=== PATIENT | female | born 1990 | race African-American/Black ===

== ENCOUNTER 2018-10-20 15:38 | Emergency (ER) | payer OTHER ==
[~2018-10-20] VITALS: Ht 149.9 cm; Wt 58.2 kg
[2018-10-20] MEDS ORDERED: PRENTAB55 PO (15:53)
[2018-10-20 16:19] LABS: BASO % 0.4 % (0.0-1.0); EOS # 0.5 10^3/uL (0.0-0.50); EOS % 5.6 % (0.0-3.0); HEMATOCRIT 39.9 % (36.0-47.0); HEMOGLOBIN 13.3 g/dl (12.0-15.5); LYMPH # 2.9 10^3/uL (1.5-6.5); LYMPH % 35.2 % (24.0-44.0); MEAN CORPUSCULAR HEMOGLOBIN 27.8 pg (27.0-33.0); MEAN CORPUSCULAR HGB CONC 33.3 g/dl (32.0-36.5); MEAN CORPUSCULAR VOLUME 83.5 fl (80.0-96.0); MONO # 0.6 10^3/uL (0.0-0.8); MONO % 7.1 % (0.0-5.0); NEUTROPHILS # 4.2 10^3/uL (1.8-7.7); NEUTROPHILS % 51.3 % (36.0-66.0); PLATELET COUNT, AUTOMATED 170 10^3/uL (150-450); RED BLOOD COUNT 4.78 10^6/uL (4.00-5.40); WHITE BLOOD COUNT 8.2 10^3/uL (4.0-10.0)
--- NOTE | 2018-10-20 17:07 | REP ---
First trimester obstetric ultrasound, stat request for abdominal pain: The study is performed with transabdominal and Doppler ultrasound assessment: There is an intrauterine gestational sac with a pole. The heart rate is 178 beats per minute. The pole crown-rump length is 2.1 cm corresponding to 8 weeks 5 days gestational age/JP 05/27/2019. There is no subchorionic hematoma. There are no adnexal masses or cysts. There is no free fluid in the pelvis. There is vascular flow in both ovaries. The Doppler resistive index of the parenchymal arteries in the right ovary is 0.65 and left ovary 0.59. Electronically Signed by Ezio Mujica MD 10/20/2018 04:59 P
[2018-10-20 17:10] LABS: ALBUMIN 3.3 GM/DL (3.2-5.2); ALT/SGPT 33 U/L (12-78); BILIRUBIN,DIRECT < 0.1 MG/DL (0.0-0.2); BILIRUBIN,TOTAL 0.1 MG/DL (0.2-1.0); BLOOD UREA NITROGEN 7 MG/DL (7-18); CALCIUM LEVEL 9.5 MG/DL (8.5-10.1); CARBON DIOXIDE LEVEL 26 MEQ/L (21-32); CHLORIDE LEVEL 105 MEQ/L (98-107); CREATININE FOR GFR 0.65 MG/DL (0.55-1.30); GLOMERULAR FILTRATION RATE > 60.0 (>60); GLUCOSE, FASTING 86 MG/DL (70-100); HCG, SERUM QUANTITATIVE 70227 MIU/ML; LIPASE 99 U/L (73-393); POTASSIUM SERUM 3.7 MEQ/L (3.5-5.1); SODIUM LEVEL 139 MEQ/L (136-145)
[2018-10-20 19:05] VITALS: BP 139/91
== END 2018-10-20 19:40 | disposition home or self-care (01) ==
LOC: M ED 15:38
DX: O26.891 Other specified pregnancy related conditions, first trimester (principal); R10.2 Pelvic and perineal pain; Z3A.08 8 weeks gestation of pregnancy